=== PATIENT | male | born 1985 | race Caucasian/White ===

== ENCOUNTER → 2016-10-22 | Outpatient (CLI) | payer BC, OTHER ==
[2016-10-22 18:15] LABS: BLOOD UREA NITROGEN 9 mg/dl (7-18); BUN/CREATININE RATIO 9.6 (10-20); CALCIUM 8.9 mg/dl (8.5-10.1); CARBON DIOXIDE 26 mmol/L (21-32); CHLORIDE 108 mmol/L (98-107); CHOLESTEROL 122 mg/dl (0-200); CREATININE 0.96 mg/dl (0.60-1.40); GLUCOSE 90 mg/dl (70-99); POTASSIUM 3.8 mmol/L (3.5-5.1); SODIUM 143 mmol/L (136-145); TRIGLYCERIDES 59 mg/dl (0-150); VERY LOW DENSITY LIPOPROT CALC 12 mg/dl
[2016-10-22 18:19] LABS: CHOLESTEROL/HDL RATIO 1.6; HDL CHOLESTEROL 76 mg/dl; LDL CHOLESTEROL CALCULATED 34 mg/dl
== END | disposition home or self-care (01) ==
LOC: C.LABBFT 12:11
PROVIDERS: ATTEND Nurse Practitioner
DX: Z00.00 Encounter for general adult medical examination without abnormal findings (principal); Z13.220 Encounter for screening for lipoid disorders

== ENCOUNTER 2025-01-16 09:08 | Inpatient (IN) ==
--- NOTE | 2025-01-10 16:28 | Anesthesiology Consultation ---
Date of Service January 10, 2025 Assessment & Plan (1) Encounter for pre-operative examination: Infectious disease screening: Per assessment on 01/10/25- No known recent infectious disease contacts or current infectious disease symptoms. Chart Review Chart Review: Acceptable Risk for Surgery and Patient NOT seen in Pre Admission Testing History Surgery Operation Date: 01/16/25 10:40 Proposed Procedures p Laparoscopic Hand-Assisted Radical Nephrectomy - Right - Jose A Jackson MD Height/Weight Height: 5 ft 9 in Weight: 74.843 kg Allergies Allergy/AdvReac Type Severity Reaction Status Date / Time No Known Drug Allergies Allergy Unknown Verified 01/10/25 14:57 Medications Home Medications Medication Instructions Recorded Confirmed Last Taken duloxetine 30 mg capsule,delayed 30 mg PO QAM 12/13/24 01/10/25 Unknown release Past Medical History Medical History Cervical radiculopathy at C6 Cervical spondylosis Cervicalgia History of asthma As child, "grew out of it" History of COVID-19 2019 or 2020, resolved fully Kidney stones Right kidney mass TMJ (temporomandibular joint disorder) Per records Patient denies, states "it's all issues stemming from his neck problems, no actual TMJ" Trigeminal anesthesia Past Family History Family History Grandfather Diabetes Cancer Grandmother Cancer Mother Cardiac disorder Myocardial infarction Hypertension Father Hypertension Grandmother (Paternal) Breast cancer Grandfather (Maternal) Prostate cancer Other No family history of adverse response to anesthesia No family history of bleeding disorder Denies family history of Ovarian cancer Colorectal cancer Past Surgical History Surgical History History of ankle surgery Age 20, ORIF right ankle History of extracorporeal shockwave lithotripsy (ESWL) History of surgery On stomach as a Hx of cystoscopy S/P hardware removal Right ankle Social History Smoking Status: Never smoker Smoking cigarettes per day: nicotine pouches Do You Dip or Chew Tobacco: No (quit 2019) Hx Alcohol Use: Yes Alcohol type: beer alcohol intake frequency: holidays/special occasions only Hx Substance Use: No substance use type: does not use Lab Results Anesthesia Preop Results Results Anesthesia Widget: WBC 6.55 K/ul (4.8-10.8) 12/26/24 Hgb 14.7 g/dl (14.0-18.0) 12/26/24 Hct 43.8 % (42.0-52.0) 12/26/24 Plt 249 K/uL (130-400) 12/26/24 Na 139 mmol/L (136-145) 12/26/24 K 3.9 mmol/L (3.5-5.1) 12/26/24 Cl 104 mmol/L (98-107) 12/26/24 CO2 28 mmol/L (21-32) 12/26/24 BUN 9 mg/dl (6-23) 12/26/24 Creat 0.91 mg/dl (0.6-1.4) 12/26/24 Glucose Level 85 mg/dl (70-99(Fasting)) 12/26/24 Testing Laboratory Results Urine culture (12/26/24): no growth Other Testing Renal ultrasound Date: 10/23/24 IMPRESSION: Stable to minimally increased in size septated cyst or cluster of cysts at the right kidney. There is question of blood flow into some of the septations without significant nodularity. Suggest either a follow-up CT or MRI with multiphase pre and postcontrast imaging to make sure there is no soft tissue component to the finding. Abdomen MRI Date: 11/30/24 IMPRESSION: 1. Multiseptated complex cyst in right kidney with multiple enhancing internal septations and few enhancing nodules-Bosniak type IV lesion. Urologic consultation is advised for consideration of surgical resection or biopsy. 2. Small Bosniak type I cyst in left kidney. 3. Few small benign hepatic cysts. 4. Small intraosseous hemangioma/focal fatty depositions in the imaged lumbar vertebrae.
[~2025-01-16 09:08] MED LIST: DEXAMETHASONE SOD INJ 4 MG/ML VIAL ONE; KETAMINE HCL 10MG/ML SYR ONE; LIDOCAINE 2% 2 ML VIAL/AMP(20MG/ML) INFIL ONE; MIDAZOLAM HCL 1 MG/ML 2ML VIAL ONE; ONDANSETRON INJ 2 MG/ML 2 ML VIAL ONE; PROPOFOL IV EMULSION 10 MG/ML 20 ML VIAL IV ONE; ROCURONIUM BROMIDE 10 MG/ML 5 ML VIAL IV ONE; SUGAMMADEX SODIUM 200 MG/2 ML VIAL IV ONE
[2025-01-16] MEDS: LR 15ML/HR IV SCH (09:36)
[2025-01-16] MEDS ORDERED: PROMETHAZINE HCL 6.25 MG in SODIUM CHLORIDE 0.9% 50 ML IV PRN (09:52)
[2025-01-16] MEDS ORDERED: ATROPINE SULFATE 0.1 MG/ML 10ML SYR IV PRN (09:52)
[2025-01-16] MEDS ORDERED: ONDANSETRON INJ 2 MG/ML 2 ML VIAL IV PRN (09:52)
--- NOTE | 2025-01-16 10:30 | History & Physical Report ---
Date of Service January 16, 2025 Assessment & Plan (1) Complex renal cyst: Plan 4 cm complex right renal cyst -Bosniak 4 with some enhancing nodules Plan today for right radical nephrectomy Contralateral kidney is healthy Creatinine currently 0.9 Risks, benefits, expectations reviewed with the patient History of Present Illness Primary Care Provider: KATHY Last A right complex renal cyst concerning for renal cell carcinoma presenting today for right radical nephrectomy Contralateral kidney is healthy in appearance and his creatinine is 0.9 He does have 1 very small cyst in the lower pole of the left kidney Allergies Allergy/AdvReac Type Severity Reaction Status Date / Time No Known Drug Allergies Allergy Unknown Verified 01/16/25 09:21 Home Medications Medication Instructions Recorded Confirmed Type duloxetine 30 mg capsule,delayed 30 mg PO QAM 12/13/24 01/16/25 History release Past Med/Surg History Problem List Encounter for pre-operative examination Right renal mass Complex renal cyst Cyst of right kidney Cervical radiculopathy at C6 Myofascial pain Cervicalgia Cervical spondylosis Herniated cervical disc Arachnoid cyst of posterior cranial fossa Trigeminal anesthesia TMJ (temporomandibular joint disorder) Globus sensation Tobacco abuse Acquired deviated nasal septum Lip numbness Routine health maintenance Acne (Acute) Medical History Trigeminal anesthesia TMJ (temporomandibular joint disorder) Per records Patient denies, states "it's all issues stemming from his neck problems, no actual TMJ" Cervicalgia Cervical spondylosis Cervical radiculopathy at C6 Right kidney mass History of COVID-19 2019 or 2020, resolved fully History of asthma As child, "grew out of it" Kidney stones Surgical History Hx of cystoscopy History of extracorporeal shockwave lithotripsy (ESWL) S/P hardware removal Right ankle History of surgery On stomach as a History of ankle surgery Age 20, ORIF right ankle Family History Grandfather Diabetes Cancer Grandmother Cancer Mother Cardiac disorder Myocardial infarction Hypertension Father Hypertension Grandmother (Paternal) Breast cancer Grandfather (Maternal) Prostate cancer Other No family history of adverse response to anesthesia No family history of bleeding disorder Denies family history of Ovarian cancer Colorectal cancer Social History Smoking Status: Never smoker Tobacco Type: Smokeless Tobacco (Dip or Chew) Cigarettes Per Day: nicotine pouches; Second Hand Exposure: No; Do You Dip or Chew Tobacco: No (quit 2020); Tobacco Cessation Education Requested by Patient: No Hx Alcohol Use: Yes Alcohol type: beer Alcohol Intake Frequency: 2-3 x/Week Hx Substance Use: No Preferred Language: Welsh Communication Ability: Effective Visual Impairment: No Limitations Hearing Ability: Normal 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 Beliefs That Will Affect Care: None marital status: Current Living Situation: Spouse and Family current occupational status: employed How many Children do You have: 1 Other Information That Helps Us Care for You: No Feels Safe at Home: Yes Safety Concerns: Feels Safe At This Time Childhood Exposure to Second-Hand Smoke: Yes caffeine: Yes during the past year weight has: remained stable Dental Care, Regularly: Yes Physical Activity Frequency: Daily Seatbelt Use: always Sunscreen Use: Yes Assistive Devices: None Review of Systems no fever, no chills and no fatigue no worsening vision no facial pain and no pain with swallowing no cough and no dyspnea no chest pain and no palpitations no abdominal pain, no nausea and no vomiting no back pain no rash and no urticaria no gait abnormality and no unsteadiness no behavioral changes and no depression no fatigue Results & Data Vital Signs (Past 12 Hours) Vital Signs Temp Pulse Resp BP Pulse Ox O2 Del Method 01/16/25 09:22 36.5 C 65 20 129/84 99 Room Air
[2025-01-16] MEDS: BUPIVACAINE LIPOSOME 1.3% 266 MG/20 ML VIAL ONE (12:45)
[2025-01-16] MEDS: BUPIVACAINE 0.5 % 5 MG/1 ML MPF 30ML VIAL ONE (12:45)
--- NOTE | 2025-01-16 13:17 | Operative Report ---
PG Post Operative Report Pre & Post Diagnosis Operation Date: 01/16/25 10:40 Pre-Op Diagnosis: 4cm Bosniak 4 Complex Right Renal Cyst Post-Op Diagnosis: 4cm Bosniak 4 Complex Right Renal Cyst - suspected renal cell carcinoma I identified the patient and participated in the time-out.: Yes Procedure Operation Date: 01/16/25 10:40 Actual Procedures p Laparoscopic Hand-Assisted Radical Right Nephrectomy(Right) - Jose A Jackson MD Surgeon Jose A Jackson MD Historical Manuscripts Curator Toby Jones, PAC Estimated Blood Loss 10 Findings Consistent with Post-Op Diagnosis Specimens Right kidney Description of Procedure Patient was identified in the preoperative holding area, appropriate informed consents reviewed and completed and he was transported to the operating suite. Upon arrival received appropriate preoperative antibiotics and general anesthesia. He was placed in the left side down right side up lateral decubitus position. Imaging was pulled up in the room. The bed was flexed and he was padded and braced appropriately before sterile prep and drape. Of note, he had a prior right upper quadrant incision for gastric outlet obstruction. Rather than enter the abdomen in that area I made a Scherer style incision in the right lower quadrant and carefully dissected through the superficial tissues until we exposed the external oblique fascia. We then incised the external bleak fascia and opened it longitudinally along the length of the incision. We then performed the same with the internal oblique fascia as well as the transversalis before sharply pierced into the peritoneum and performed a finger sweep. There were no adhesions around our initial entry site and we expanded this peritoneal incision for the length of the muscle incision. Inspection revealed a healthy appearing colon, I expanded this incision long enough to be able to insert my hand and I palpated up towards the area of his prior surgery. He does have a few adhesions in this area and I was able to tease some of these off with my hand and clear enough of an area that I felt that we could safely play sports. A GelPort was placed through the larger area and the abdomen insufflated before passing a hand through this port and placing 212 mm assistant associate professor ports. The first was placed through his prior incision on the medial aspect of this incision just below the costal margin. The other was approximately 5 cm inferior to it. We then began the laparoscopic portion of the case and mobilized the colon by incising the white line of Toldt and medializing the colon entirely off of the kidney. The duodenum was then kocherized off the medial aspect of the kidney and the underlying IVC was exposed. I was able to visualize the gonadal vein inserting into the anterior surface of the IVC. Of note, given his prior surgery there were some adhesions between the liver and the anterior surface of the kidney and we carefully worked her way through those and incised the peritoneum along the upper medial aspect of the kidney. I did additionally incised the peritoneum along the lateral surface of the kidney leaving 1 triangle of intact peritoneum overlying the kidney itself. I then turned my attention back to the inferior aspect of the kidney and dissected lateral to the gonadal vein and onto the psoas muscle. The ureter was visualized and was captured in this packet which was then elevated. I was able to pass the hand behind the kidney and stretch the hilar vessels. We dissected up to the inferior aspect of the vein and expose the anterior surface of the vein. The artery was actually visible and palpable immediately posterior to the upper limit of the vein. Created an opening superior to the vein I was able to col lect the entire vascular hilum and a solitary staple load. A 45 mm staple load was passed across the hilar structures followed by a second 45 mm staple load between the adrenal and the upper pole of the kidney. A third 60 mm staple load additionally continued the dissection along the superior margin of the kidney. I then utilized my harmonic scalpel to continue the remainder of the dissection including control of the ureter at the inferior aspect of the kidney. The kidney was entirely freed and was extracted through the HandPort. We then inspected and hemostasis was excellent. The colon was mobilized back over the right upper quadrant. The 212 mm assistant associate professor ports were closed with 0 Vicryl utilizing a Jamaal-Tristen device. The HandPort was closed in multiple layers with peritoneum reapproximated with 0 Vicryl followed by reconstruction of the transversalis fascia, the internal oblique fascia, the external oblique fascia individually all with 0 Vicryl sutures. Half percent Marcaine/Exparel was utilized to infiltrate the wounds and muscle layers. 4-0 Monocryl was utilized to close the skin and Dermabond was placed over each incision. Specimen was passed off the table for routine pathology and the case was concluded. There were no complications. He was reversed of anesthesia and taken to the recovery room in stable condition. JONEL Copeland assisted throughout the case from incision to closure. I attest to the content of the Intraoperative Record and any orders documented therein. Any exceptions are noted below.
[2025-01-16 13:51] LABS: Hematocrit (blood only) 44.8 % (42.0-52.0); Hemoglobin 14.6 g/dl (14.0-18.0); Immature Granulocytes # (auto) 0.07 K/uL (0.01-0.20); Immature Granulocytes % (auto) 0.4 %; Mean Corpuscular Hemoglobin 28.2 pg (25.0-34.0); Mean Corpuscular Volume 86.7 fL (80.0-100.0); Platelet Count 214 K/uL (130-400); RDW Standard Deviation 39.8 fL (36.4-46.3); Red Blood Count 5.17 M/uL (4.70-6.10); White Blood Count 17.30 K/ul (4.8-10.8)
[2025-01-16 13:55] LABS: Anion Gap 6.0 (3-11); Blood Urea Nitrogen 14.0 mg/dl (6-23); Calcium 8.9 mg/dl (8.6-10.3); Carbon Dioxide 26.0 mmol/L (21-32); Chloride 106.0 mmol/L (98-107); Creatinine Clr Calc Pharmacy 94.4 ml/min; Glucose 136.0 mg/dl (70-99(Fasting)); Potassium 4.4 mmol/L (3.5-5.1); Sodium 138.0 mmol/L (136-145)
--- NOTE | 2025-01-16 14:00 | Anesthesiology Progress Note ---
Date of Service January 16, 2025 Anesthesia Post Procedure Vital Signs Vital Signs: Temp Pulse Resp BP Pulse Ox O2 Del Method O2 Flow Rate 01/16/25 13:55 56 L 18 137/80 100 Nasal Cannula 2 01/16/25 13:45 68 18 139/95 100 Nasal Cannula 2 01/16/25 13:35 70 20 147/89 H 100 Nasal Cannula 2 01/16/25 13:25 56 L 12 137/91 100 Nasal Cannula 2 01/16/25 13:15 36.4 C L 84 16 142/88 H 98 Oxymask 4 01/16/25 09:22 36.5 C 65 20 129/84 99 Room Air Pain Intensity Right Abdomen: Pain Intensity: 6 Abdomen: Pain Intensity: 7 Transfer of Care Handoff Completed per policy Notes Mental Status: alert / awake / arousable and participated in evaluation Patient Amnestic to Procedure: Yes Nausea / Vomiting: adequately controlled Pain: adequately controlled Airway Patency, RR, SpO2: stable & adequate BP & HR: stable & adequate Hydration State: stable & adequate Anesthetic Complications: no major complications apparent and Pt Satisfied with anesthetic care
[2025-01-16] MEDS: HYDROmorphone INJ 1 MG/ML SYRINGE IV PRN (14:15)
[2025-01-16] MEDS: ACETAMINOPHEN 1000 MG/100 ML IV IV ONE (15:19)
[2025-01-16] MEDS: SODIUM CHLORIDE 0.9% 1,000 ML IV SCH (15:35)
[2025-01-16] MEDS: ACETAMINOPHEN 500 MG TAB PO PRN (17:23)
[2025-01-16] MEDS: HYDROmorphone INJ 0.5 MG/0.5 ML SYR IV PRN (20:51)
[2025-01-16] MEDS: HEPARIN SOD 5,000 UNIT/0.5 ML VIAL SQ SCH (20:52)
[2025-01-16] MEDS: DOCUSATE SODIUM 100 MG CAP PO SCH (20:52)
[2025-01-17] MEDS: HYDROmorphone INJ 0.5 MG/0.5 ML SYR IV PRN (03:19)
[2025-01-17 07:41] LABS: Hematocrit (blood only) 42.2 % (42.0-52.0); Hemoglobin 14.2 g/dl (14.0-18.0); Immature Granulocytes # (auto) 0.03 K/uL (0.01-0.20); Immature Granulocytes % (auto) 0.3 %; Mean Corpuscular Hemoglobin 29.3 pg (25.0-34.0); Mean Corpuscular Volume 87.0 fL (80.0-100.0); Platelet Count 217 K/uL (130-400); RDW Standard Deviation 40.3 fL (36.4-46.3); Red Blood Count 4.85 M/uL (4.70-6.10); White Blood Count 11.79 K/ul (4.8-10.8)
[2025-01-17 08:02] LABS: Anion Gap 7.0 (3-11); Blood Urea Nitrogen 16.0 mg/dl (6-23); Calcium 8.9 mg/dl (8.6-10.3); Carbon Dioxide 25.0 mmol/L (21-32); Chloride 106.0 mmol/L (98-107); Creatinine Clr Calc Pharmacy 64.6 ml/min; Glucose 96.0 mg/dl (70-99(Fasting)); Potassium 4.7 mmol/L (3.5-5.1); Sodium 138.0 mmol/L (136-145)
[2025-01-17 08:25] VITALS: RESP 18
--- NOTE | 2025-01-17 10:55 | Urology Progress Note ---
Date of Service January 17, 2025 Assessment & Plan (1) Right renal mass: Plan: Right renal masssuspected renal cell carcinoma Postop day #1 status post right radical nephrectomy Calixto out this morning Continue to advance ambulation, activity Can advance diet today as well Labs are as expected His creatinine has increased to 1.5 and this is an acute reaction to removal of 1 kidney and I anticipate recovery over the next several weeks Hemoglobin appropriate Will plan to check on him later this afternoon and potentially consider discharge home if he feels up for Admission and Anticipated Discharge Date Admission Date: January 16, 2025 Subjective Subjectively doing okay Has expected levels of tenderness along his right flank where his surgery occurred Has not really ambulated yet but is tolerating some p.o. intake of food Still has a Calixto catheter in place Physical Exam Physical Exam: Incisions appropriate, appropriately tender over his extraction site and lap incisions Results & Data Vital Signs (Past 12 Hours) Vital Signs Temp Pulse Resp BP BP Pulse Ox O2 Del Method 01/17/25 08:25 36.7 C 83 18 137/87 99 Room Air 01/17/25 03:18 36.6 C 68 14 137/79 98 Room Air 01/16/25 23:20 36.9 C 95 H 14 124/72 96 Room Air PG Care Time/CCT Total # of Minutes Spent Total Time Spent with Patient: Total time spent is greater than 50% in coordination of care (as documented) at patient's floor/unit and/or counseling patient: Coding Level of Care Code None Diagnoses Right renal mass N28.89
[2025-01-17 15:32] VITALS: BP 151/81; PULSE 64; TEMP 98.2; O2SAT 97
--- NOTE | 2025-01-17 15:54 | Discharge Summary ---
Date of Service January 17, 2025 Admission HPI Per Admitting Provider 39 year old male with a right complex renal cyst concerning for renal cell carcinoma presenting today for right radical nephrectomy. Contralateral kidney is healthy in appearance and his creatinine is 0.9. He does have 1 very small cyst in the lower pole of the left kidney. Admission Exam Per Admitting Provider Constitutional well developed and well nourished; no acute distress Respiratory normal respiratory effort; no respiratory distress Gastrointestinal (Abdomen) Inspection/Auscultation: abdomen normal to inspection Percussion/Palpation: abdomen soft; abdomen nontender Musculoskeletal Gait: normal gait Psychiatric A+Ox3, euthymic affect Genitourinary no CVA tenderness Principal Diagnosis 4cm Bosniak 4 Complex Right Renal Cyst - suspected renal cell carcinoma Discharge Exam Constitutional well developed and well nourished; no acute distress Respiratory normal respiratory effort; no respiratory distress and no labored breathing Gastrointestinal (Abdomen) Incisions appropriate, Dermabond intact Neurologic moves all extremities and awake Psychiatric A+Ox3, euthymic affect Discharge Data Allergies Allergy/AdvReac Type Severity Reaction Status Date / Time No Known Drug Allergies Allergy Unknown Verified 01/16/25 09:21 Procedures Performed Operation Date: 01/16/25 10:40 Actual Procedures p Laparoscopic Hand-Assisted Radical Right Nephrectomy(Right) - Jose A Jackson MD Hospital Course (1) Right renal mass: Plan 39-year-old male admitted status post right radical nephrectomy with Dr. Jackson. Patient tolerated procedure well. No acute issues postoperatively. He remained afebrile and hemodynamically stable. Labs appropriate. Patient passed a voiding trial on postop day #1. He reported minimal pain. Ambulated without issue. Tolerated a diet. He was discharged home on postop day #1. He was in stable condition at time of discharge. Discharge instructions were reviewed, all questions were answered. Total Time Total Time Spent Total Time Spent (In Minutes): 15 Discharge Plan Discharge Items Patient Disposition: Home - Self-Care Reason For Visit: Other Specified Disorders of Kidney and Ureter Discharge Diagnosis: 4cm Bosniak 4 Complex Right Renal Cyst - suspected renal cell carcinoma Activity: Per Instructions section Bathing Comment: OK to shower. No tub baths or soaks. Sexual Activity: Wait until after follow-up appointment Exercise/Sports: Wait until after follow-up appointment Driving/Machine Use: Do not drive if taking prescription pain medication. Non-emergency contact: Surgeon and Urologist Call non-emergency contact if: you have any medication questions, your symptoms worsen, your pain is not controlled, you have a fever, your wound has increased redness, your wound has increased drainage and your wound pain has increased Follow-up/Referrals: Lauren Kong CRNP [Primary Care Provider] - Jose A Jackson MD [Physician] - Diet: Regular Addtl Attending Provider Instructions: Please take all medications as prescribed and keep all follow-ups as scheduled. Please call our office at [phone] with any questions, concerns or need to reschedule appointments for any reason. We are happy to assist you. Recovering at home: We recommend having someone with you for the first few days after surgery to help care for you. It is okay to shower tomorrow. Please avoid swimming, bathing or using hot tub until incisions are well healed. Avoid driving until you are not requiring pain medication any further. Walk at least a few times a day. Increase your distance, as you feel able. Stairs in your home are okay. Please avoid strenuous or sexual activity until your follow-up. We recommend using stool softener (i.e. Colace) to prevent constipation and straining, especially the first two weeks post operatively. Call [facility] at [phone] if you experience: Chest pain or trouble breathing (call [phone] or go to the hospital). Fever of 101F or higher Symptoms of infection at incision site, including redness or swelling, warmth, or bad-smelling drainage If you are unable to urinate Pain that is not controlled with medicines Pending Studies at Discharge: Yes (pathology) Stand-Alone Forms: My [facility] Social[employer], Smoking Cessation Medications and DC Order Prescriptions: New oxycodone 5 mg tablet 5 mg PO Q8H PRN (Reason: pain) Qty: 5 0RF Continued duloxetine 30 mg capsule,delayed release(DR/EC) 30 mg PO QAM Patient Comments: 01/10/25-will be starting 20mg tablets on 01/11/25, once daily Discharge Orders: Discharge Order (Routine); Ordered 01/17/25 Ordered By: Naa Heaton Admission Data Admit Date/Time: 01/16/25 13:05 Attending Provider: Jose A Jackson Admit Provider: Jose A Jackson Primary Care Provider: Lauren Kong Other Interventions: Discharge Summary Assessment (RN) Last Done: 01/17/25 14:50 Coding Level of Care Code 16483 IN/OBS DISCH 30 MIN/LESS Diagnoses Right renal mass N28.89
--- NOTE | 2025-01-24 10:32 | Coding Query ---
CODING QUERY To promote full compliance with coding requirements relating to patient care, provider participation is requested in all cases of chute puller uncertainty. Please assist us with the question(s) below: Coding Question(s): Various kidney issues were mentioned in reports. Can you please clarify below? 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 Thank you Imani Hines Principal Diagnosis: "that condition established after study, to be chiefly responsible for occasioning the admission of the patient to the hospital for care." Co-Existing Principal Diagnosis: "when two or more diagnoses equally meet the criteria for principal diagnosis as determined by the circumstances of admission, diagnostic work up, and/or therapy provided, and the Alphabetic Index, Tabular List, or another coding guideline does not provide sequencing direction, any one of the diagnoses may be sequenced first." "When the physician has documented what appears to be a current diagnosis in the body of the record, but has not included the diagnosis in the final diagnostic statement, the physician should be asked whether the diagnosis should be added." (Source Coding Clinic 2 QTR90. p3-4) EDUARDO
== END 2025-01-17 16:16 | disposition home or self-care (01) | DRG 700 ==
LOC: ASU 09:08 → 3N 13:05